=== PATIENT | female | born 1975 | race Caucasian/White ===

== ENCOUNTER → 2023-07-02 17:16 | Outpatient (REF) | payer OTHER, SELFPAY | LOC: MRI 3T 17:16 | PROVIDERS: ATTENDING PHYSICIAN Nurse Practitioner Adult Health; FAMILY PHYSICIAN Family Medicine | DX: D25.9 Leiomyoma of uterus, unspecified (principal) | CPT/HCPCS: 72197; A9575 ==

== ENCOUNTER → 2023-07-15 07:47 | Outpatient (REF) | payer OTHER, SELFPAY | LOC: WDC 07:47 | PROVIDERS: ATTENDING PHYSICIAN Nurse Practitioner Adult Health; FAMILY PHYSICIAN Family Medicine | DX: R92.2 Inconclusive mammogram (principal) | CPT/HCPCS: 76641 ==

== ENCOUNTER 2023-07-22 11:27 | Day surgery (SDC) | payer OTHER, SELFPAY ==
[2023-07-22] VITALS (19 sets, daily range): BP systolic 56–142; BP diastolic 73–95; BMI 23.5
[2023-07-22 07:51] LABS: Hematocrit 35.9 % (37.0-47.0); Hemoglobin 11.9 g/dL (12.0-16.0); Mean Corp Hgb Conc. 33.1 g/dL (33.0-37.0); Mean Corpuscular Hgb 31.2 pg (27.0-31.0); Mean Platelet Volume 10.2 fL (7.4-10.4); Platelet Count 142 10^3/uL (130-400); Red Blood Cell Count 3.82 10^6/uL (4.20-5.40); White Blood Cell Count 3.1 10^3/uL (4.8-10.8)
[2023-07-22 08:03] LABS: HCG, Urine Qualitative Screen Negative
[2023-07-22 08:13] LABS: INR 1.14; PT 14.6 Sec (11.4-14.6)
[2023-07-22] MEDS: ATIVAN 1 MG PO (08:36)
[2023-07-22] MEDS: ZOFRAN 8 MG PO (08:36)
[2023-07-22] MEDS: OXYCONTIN (CONTROLLED RELEASE) 10 MG PO (08:36)
[2023-07-22] MEDS: DECADRON 10 MG IV (08:38)
[2023-07-22] MEDS: BENADRYL 25 MG IV (08:38)
[2023-07-22] MEDS: NSS 1000 IV ×2 (08:39→19:49)
[2023-07-22 09:09] LABS: Blood Urea Nitrogen 25 mg/dl (7-17); Estimated Creatinine Clearance 94 ml/min
[2023-07-22] MEDS: ANCEF 10 IV (09:16)
--- NOTE | 2023-07-22 13:30 | PTCARENOTE ---
Addendum entered by Nadia Hayes RN 07/22/23 17:50:
Cespedes catheter in place
Original Note:
1245: Patient arrived to 2S. Head to toe assessment completed. Neurovascular assessment completed. R femoral incision with a small amount of old drainage and covered with a band aid. IVF running per order. Bed in lowest position and call nuno within
reach.
[2023-07-22] MEDS: TORADOL 15 MG IV ×2 (14:10→19:49)
[2023-07-22] MEDS: BUSPAR 10 MG PO (19:49)
[2023-07-22] MEDS: NSS IV (19:49)
[2023-07-23] MEDS: TORADOL 15 MG IV ×2 (02:10→08:38)
[2023-07-23] MEDS: ROXICODONE 5 MG PO (02:18)
[2023-07-23 03:42] VITALS: BP 132/81
[2023-07-23] MEDS: NSS 1000 IV (05:37)
[2023-07-23 07:40] VITALS: BP 130/88
[2023-07-23] MEDS: BUSPAR 10 MG PO (08:38)
[2023-07-23] MEDS: COZAAR 50 MG PO (08:38)
--- NOTE | 2023-07-23 09:09 | W.PN.GENERIC ---
Assessment / Plan
-
48 yo female with uterine fibroid who underwent UAE. She is doing well post procedure. She is stable for discharge today.
Scripts given to patient
Plan to D/C this morning
Physician Progress Note
Subjective
48 yo female with uterine fibroid underwent UAE yesterday. She had some cramping through the night that improved with pain medications. She is voiding spontaneously and tolerating POs. She is feeling well this morning.
Objective
Vital Signs
Temp Pulse Resp BP Pulse Ox
98.1 F 62 17 130/88 100
07/23/23 07:40 07/23/23 07:40 07/23/23 07:40 07/23/23 07:40 07/23/23 07:40
Lab Results
07/22/23 07:40
07/22/23 07:40
This is a WNWD 48 yo female in NAD lying in bed. Regular heart rate. Normal respiratory effort. Abdomen is soft and nontender. Right groin dressing is CDI. No pulsatile mass. Minmal hematoma is nontender. Palpable inguinal and pedal pulses.
No LE edema. AA&O
--- NOTE | 2023-07-23 10:28 | CM ---
Reviewed the chart notes and spoke with the patient at the bedsides. The patient is being admitted under observational status. The observational letter was provided and explained. The patient had no questions with regards to the letter.
The patient resides with her spouse in a two story home with no steps to enter. The patient reports no DME/VN/SNF in the past. The patient confirmed her pharmacy of choice is [facility]. The patient's spouse will
provide transportation home. CM continues to be available to patient/family and is monitoring medical plan for needs at discharge.
Plan: Discharge to home today with no anticipated needs.
== END 2023-07-23 11:14 | disposition home or self-care (01) ==
LOC: SDS 11:27
PROVIDERS: ATTENDING PHYSICIAN Radiology Vascular & Interventional Radiology; FAMILY PHYSICIAN Family Medicine
DX: N92.1 Excessive and frequent menstruation with irregular cycle (principal); D25.9 Leiomyoma of uterus, unspecified; R93.89 Abnormal findings on diagnostic imaging of other specified body structures
CPT/HCPCS: 37243; 36246; 36415; 75736; 76937; 81025; 82565; 84520; 85027; 85610; 99152; 99153; C1769; C1788

== ENCOUNTER → 2024-01-25 10:44 | Outpatient (REF) | payer OTHER, SELFPAY | LOC: HWWDC 10:44 | PROVIDERS: ATTENDING PHYSICIAN Nurse Practitioner Adult Health; FAMILY PHYSICIAN Family Medicine | DX: Z12.31 Encounter for screening mammogram for malignant neoplasm of breast (principal) | CPT/HCPCS: 77063; 77067 ==

== ENCOUNTER → 2024-03-31 07:45 | Outpatient (REF) | payer OTHER, SELFPAY | LOC: HWRAD 07:45 | PROVIDERS: ATTENDING PHYSICIAN Nurse Practitioner Adult Health; FAMILY PHYSICIAN Family Medicine | DX: N93.9 Abnormal uterine and vaginal bleeding, unspecified (principal) | CPT/HCPCS: 76830; 76856 ==

== ENCOUNTER → 2024-09-14 09:24 | Outpatient (REF) | payer OTHER, SELFPAY | LOC: WDC 09:24 | PROVIDERS: ATTENDING PHYSICIAN Nurse Practitioner Adult Health; FAMILY PHYSICIAN Family Medicine | DX: R92.2 Inconclusive mammogram (principal) | CPT/HCPCS: 76641 ==

== ENCOUNTER → 2025-01-26 07:23 | Outpatient (REF) | payer OTHER, SELFPAY | LOC: HWWDC 07:23 | PROVIDERS: ATTENDING PHYSICIAN Nurse Practitioner Adult Health; FAMILY PHYSICIAN Family Medicine | DX: Z12.31 Encounter for screening mammogram for malignant neoplasm of breast (principal); R92.2 Inconclusive mammogram | CPT/HCPCS: 77063; 77067 ==